=== PATIENT | female | born 1970 | race Caucasian/White ===

== ENCOUNTER → 2016-03-02 16:22 | Outpatient (CLI) | payer OTHER ==
[2015-06-09 18:09] VITALS: BMI 30.7
[~2016-03-02 16:22] MED LIST: BENZTROPINE MESY1 MG PO; DEPAKOTE500 MG PO; GEMFIBROZIL600 MG PO; HALDOL5 MG PO; IBUPROFEN600 MG PO; MINIVELLE1 EAC1 TRANSDERM; PERCOCET 5-3251 TAB PO; STOOL SOFTENER100 M1 PO; TOPROL XL25 MG PO
== END | disposition home or self-care (01) ==
LOC: D.MAMMO 08:45
DX: Z12.31 Encounter for screening mammogram for malignant neoplasm of breast (principal)

== ENCOUNTER → 2016-04-20 14:35 | Outpatient (CLI) | payer OTHER ==
[2015-06-09 18:09] VITALS: BMI 30.7
== END | disposition home or self-care (01) ==
LOC: D.MAMMO 10:30
DX: R92.8 Other abnormal and inconclusive findings on diagnostic imaging of breast (principal)

== ENCOUNTER → 2018-01-03 18:01 | Outpatient (CLI) | payer OTHER ==
[2015-06-09 18:09] VITALS: BMI 30.7
== END | disposition home or self-care (01) ==
LOC: D.MAMMO 13:00
DX: Z12.31 Encounter for screening mammogram for malignant neoplasm of breast (principal)

== ENCOUNTER → 2018-02-20 19:53 | Outpatient (CLI) | payer OTHER ==
[2015-06-09 18:09] VITALS: BMI 30.7
== END | disposition home or self-care (01) ==
LOC: D.MAMMO 10:30
DX: R92.8 Other abnormal and inconclusive findings on diagnostic imaging of breast (principal)

== ENCOUNTER 2019-01-21 02:42 | Emergency (ER) | payer OTHER ==
[~2019-01-21] VITALS: Ht 160 cm; Wt 52.7 kg
[2019-01-21 02:47] VITALS: BP 113/72; Ht 160 cm; Wt 52.7 kg
== END 2019-01-21 03:03 | disposition left against medical advice (07) ==
LOC: D.ER 02:42
DX: R45.851 Suicidal ideations (principal)